=== PATIENT | female | born 1935 | race Two or more races ===

== ENCOUNTER 2024-05-21 22:17 | Inpatient (IN) | payer MEDICARE, OTHER ==
[~2024-05-21] VITALS: Ht 190.5 cm; Wt 54.6 kg
[2024-05-21 23:24] LABS: BASOPHILS % (AUTO) 0.6 % (0.0-2.0); EOSINOPHILS # (AUTO) 0.2 K/uL (0.0-0.7); EOSINOPHILS % (AUTO) 3.7 % (0.0-6.0); HEMATOCRIT 32 % (33-45); HEMOGLOBIN 10.7 g/dL (11.5-14.8); LYMPHOCYTES # (AUTO) 1.5 K/uL (0.8-4.8); LYMPHOCYTES % (AUTO) 32.5 % (20.0-44.0); MEAN CORPUSCULAR HEMOGLOBIN 31 PG (26.0-33.0); MEAN CORPUSCULAR HGB CONC 33 g/dl (31.0-36.0); MEAN CORPUSCULAR VOLUME 94 fL (82-100); MONOCYTES # (AUTO) 0.5 K/uL (0.1-1.30); MONOCYTES % (AUTO) 11.5 % (2.0-12.0); NEUTROPHILS # (AUTO) 2.3 K/uL (1.8-8.9); NEUTROPHILS % (AUTO) 51.7 % (43.0-81.0); PLATELET COUNT (AUTO) 242 K/uL (150-450); RED BLOOD CELL COUNT(AUTO) 3.46 MIL/uL (4.0-5.2); RED CELL DISTRIBUTION WIDTH 18.2 % (11.5-15.0); WHITE BLOOD COUNT (AUTO) 4.5 K/uL (4.3-11.0)
[2024-05-21 23:34] LABS: CALCIUM, SERUM 7.7 mg/dL (8.5-10.1); CARBON DIOXIDE 22 mmol/L (21-32); CHLORIDE 104 mmol/L (98-107); CREATININE 0.6 mg/dL (0.6-1.3); GLUCOSE 98 mg/dL (74-106); POTASSIUM 4.2 mmol/L (3.5-5.1); SODIUM SERUM 129 mmol/L (136-145); UREA NITROGEN, BLOOD 19 mg/dL (7-18)
[2024-05-21 23:36] LABS: INR 1.11 (0.91-1.10); PARTIAL THROMBOPLASTIN TIME 26.7 SEC (24.3-34.3); PROTHROMBIN TIME 11.7 SECS (9.2-11.1)
[2024-05-22 00:38] LABS: APPEARANCE,URINE CLEAR (CLEAR); BILIRUBIN,URINE NEGATIVE (NEGATIVE); BLOOD, URINE 2+ Ery/uL (NEGATIVE); COLOR,URINE YELLOW (YELLOW); KETONES,URINE NEGATIVE (NEGATIVE); LEUKOCYTE ESTERASE ,URINE TRACE (NEGATIVE); NITRITE, URINE NEGATIVE (NEGATIVE); PROTEIN,URINE NEGATIVE (NEGATIVE); UGLUCOSE NEGATIVE (NEGATIVE); UROBILINOGEN,URINE 0.2 EU/dL (0.2)
[2024-05-22 00:46] LABS: ADD URINE CULTURE NO; BACTERIA,URINE Rare /HPF (None Seen); SQUAMOUS EPITHELIAL CELL,UR Few /HPF (None Seen)
[2024-05-22] MEDS: CEFTRIAXONE 1GM BAG (ER ONLY) 1 GM/50 ML PIGGYBACK IV ONE (01:30)
[2024-05-22] MEDS ORDERED: CEFTRIAXONE 1GM BAG (ER ONLY) 50 ML IV ONE (01:38)
[2024-05-22] MEDS ORDERED: MAG HYDROX/AL HYDROX/SIMETH 30 ML UDC PO PRN (02:30)
[2024-05-22] MEDS ORDERED: MAGNESIUM HYDROXIDE 30 ML UDC PO PRN (02:30)
[2024-05-22] MEDS ORDERED: Z GUARD REMEDY 4 OZ OINT TP PRN (02:30)
[2024-05-22] MEDS ORDERED: ZOLPIDEM TARTRATE 5 MG TABLET PO PRN (02:30)
[2024-05-22 05:52] LABS: BASOPHILS % (AUTO) 0.4 % (0.0-2.0); EOSINOPHILS # (AUTO) 0.1 K/uL (0.0-0.7); EOSINOPHILS % (AUTO) 2.7 % (0.0-6.0); HEMATOCRIT 37 % (33-45); HEMOGLOBIN 12.2 g/dL (11.5-14.8); LYMPHOCYTES # (AUTO) 1.4 K/uL (0.8-4.8); MEAN CORPUSCULAR HEMOGLOBIN 31 PG (26.0-33.0); MEAN CORPUSCULAR HGB CONC 33 g/dl (31.0-36.0); MEAN CORPUSCULAR VOLUME 94 fL (82-100); MONOCYTES # (AUTO) 0.5 K/uL (0.1-1.30); MONOCYTES % (AUTO) 9.6 % (2.0-12.0); NEUTROPHILS # (AUTO) 3.3 K/uL (1.8-8.9); NEUTROPHILS % (AUTO) 61.3 % (43.0-81.0); PLATELET COUNT (AUTO) 260 K/uL (150-450); RED BLOOD CELL COUNT(AUTO) 3.95 MIL/uL (4.0-5.2); RED CELL DISTRIBUTION WIDTH 18.4 % (11.5-15.0); WHITE BLOOD COUNT (AUTO) 5.4 K/uL (4.3-11.0)
[2024-05-22] MEDS: IV NS 0.9% 1,000 ML IV PRN (06:41)
[2024-05-22 06:53] LABS: CALCIUM, SERUM 8.7 mg/dL (8.5-10.1); CARBON DIOXIDE 27 mmol/L (21-32); CHLORIDE 104 mmol/L (98-107); CREATININE 0.7 mg/dL (0.6-1.3); GLUCOSE 98 mg/dL (74-106); MAGNESIUM 2.6 mg/dL (1.8-2.4); NT-PRO BNP 2563 pg/mL (0-125); PHOSPHORUS 3.1 mg/dL (2.5-4.9); POTASSIUM 4.4 mmol/L (3.5-5.1); SODIUM SERUM 140 mmol/L (136-145); UREA NITROGEN, BLOOD 14 mg/dL (7-18)
[2024-05-22 07:54] VITALS: BP 150/90; TEMP 98.9; O2SAT 96
[2024-05-22] MEDS ORDERED: ALEN70TA80 PO (08:54)
[2024-05-22] MEDS ORDERED: DILT180C49 PO (08:54)
[2024-05-22] MEDS ORDERED: ACET325T53 PO (08:54)
[2024-05-22] MEDS ORDERED: CELE-85 PO (08:54)
[2024-05-22] MEDS ORDERED: ESCI10TA PO (08:54)
[2024-05-22] MEDS ORDERED: TRAM50TA2 PO (08:54)
[2024-05-22] MEDS ORDERED: ASPI-1169 PO (08:54)
[2024-05-22] MEDS ORDERED: MULT-213 PO (08:54)
[2024-05-22] MEDS ORDERED: POLY17PO4 PO (08:54)
[2024-05-22] MEDS ORDERED: APIX2.5T PO (08:54)
[2024-05-22] MEDS ORDERED: AMLO-212 PO (08:54)
[2024-05-22] MEDS ORDERED: ATOR80TA PO (08:54)
[2024-05-22] MEDS ORDERED: GABA300C PO (08:54)
[2024-05-22] MEDS ORDERED: LEVO75TA99 PO (08:54)
[2024-05-22] MEDS ORDERED: MELA5TAB PO (08:54)
[2024-05-22] MEDS ORDERED: DOCU100C36 PO (08:54)
[2024-05-22] MEDS ORDERED: CLON0.1T PO (08:54)
[2024-05-22] MEDS ORDERED: OXYC10TA49 PO (08:54)
[2024-05-23 04:56] VITALS: BP 132/77; TEMP 98; O2SAT 90
[2024-05-23 08:06] LABS: CALCIUM, SERUM 8.2 mg/dL (8.5-10.1); CARBON DIOXIDE 26 mmol/L (21-32); CHLORIDE 105 mmol/L (98-107); CREATININE 0.5 mg/dL (0.6-1.3); GLUCOSE 84 mg/dL (74-106); MAGNESIUM 2.4 mg/dL (1.8-2.4); PHOSPHORUS 3.9 mg/dL (2.5-4.9); POTASSIUM 4.2 mmol/L (3.5-5.1); SODIUM SERUM 136 mmol/L (136-145); UREA NITROGEN, BLOOD 19 mg/dL (7-18)
[2024-05-23 08:13] LABS: URIC ACID 3.4 mg/dL (2.6-7.2)
[2024-05-23] MEDS: CEFTRIAXONE 1 G in IV D5W 50 ML IV SCH (09:08)
[2024-05-23 16:00] VITALS: BP 166/99; TEMP 98.4; O2SAT 96
[2024-05-23 17:00] VITALS: BP 126/80
[2024-05-23 20:00] VITALS: BP 127/68; TEMP 97.5; O2SAT 95
[2024-05-24 07:00] VITALS: BP 141/83; TEMP 98.4; O2SAT 98
[2024-05-24 16:00] VITALS: BP 130/74; TEMP 98.4; O2SAT 95
[2024-05-24 20:00] VITALS: TEMP 98.1
[2024-05-24] MEDS: ACETAMINOPHEN 325 MG TABLET PO PRN (21:20)
[2024-05-25 08:35] VITALS: BP 132/66; TEMP 98; O2SAT 95
== END 2024-05-25 14:40 | DRG 554 ==
LOC: ER 22:25 → MEDSG1 05-22 04:34 → MED 05-23 12:11
DX: M19.011 Primary osteoarthritis, right shoulder (principal); N39.0 Urinary tract infection, site not specified; E87.1 Hypo-osmolality and hyponatremia; R20.2 Paresthesia of skin; I48.91 Unspecified atrial fibrillation; Z86.73 Personal history of transient ischemic attack (TIA), and cerebral infarction without residual deficits; K59.00 Constipation, unspecified; Z53.20 Procedure and treatment not carried out because of patient's decision for unspecified reasons; G89.29 Other chronic pain; M19.90 Unspecified osteoarthritis, unspecified site; I10 Essential (primary) hypertension; E78.5 Hyperlipidemia, unspecified; E03.9 Hypothyroidism, unspecified; D64.9 Anemia, unspecified; E86.9 Volume depletion, unspecified; M81.0 Age-related osteoporosis without current pathological fracture; Z79.890 Hormone replacement therapy; Z79.899 Other long term (current) drug therapy; Z79.83 Long term (current) use of bisphosphonates; Z79.82 Long term (current) use of aspirin; Z79.01 Long term (current) use of anticoagulants
CPT/HCPCS: 36415; 71045-TC; 73030-TC; 80048-TC; 81001; 83735-TC; 83880; 84100-TC; 84443-TC; 84550-TC; 85025-TC; 85730-TC; A4223; G0378; J0696; J7050; J7060